=== PATIENT | female | born 1935 | race Caucasian/White ===

== ENCOUNTER 2017-04-12 12:57 | Inpatient (IN) | payer MEDICARE, OTHER ==
[~2017-04-12] VITALS: Ht 157.5 cm; Wt 65.8 kg
[2017-04-12] MEDS ORDERED: ABILIFY10 MG PO (13:24)
[2017-04-12] MEDS ORDERED: NITROFURANTOIN100 MG PO (13:24)
[2017-04-12] MEDS ORDERED: LISINOPRIL-HCT1 EACH PO (13:25)
--- NOTE | 2017-04-12 19:25 | NUR ---
PATIENT ADMIT FROM ED. PATIENT TO FLOOR VIA STRETCHER. TRANSFER SELF TO HOSPITAL BED WITH NO DIFFICULTY. HEAD TO TOE ASSESSMENT COMPLETED. SKIN INTACT EXCEPT RASH AND REDNESS NOTED ON THE UPPER AND LOWER EXTREMITIES AND BUTTOCK. PATIENT IS INCONTINENT OF URINE. CAREGIVER REPORTED THAT PATIENT HAD 2 BMs DIARRHEA THIS AM. LUNGS COARSE, AND CRAKLES THROUGHOUT. POSITIVE BOWEL TONES. PATIENT ORIENTED TO ROOM, EDUCATION ABOUT HOW TO USE CALL LIGHT. CLEAR LIQ TRAY ORDERED AND PATIENT ATE 100%. DENIED PAIN, REPORTED SOB WITH MOVEMENT. IV SITE PATENT AND FLUID INFUSING. PULSE OX ON. PATIENT ON 3L OF 02 AND SAT BETWEEN 92-94%. NO APPARENT DISTRESS NOTED. REPORT GIVEN TO CARLOTA.
--- NOTE | 2017-04-12 19:30 | NUR ---
RECEIVED REPORT FROM DAY SHIFT RN. PATIENT IS SITTING AT THE BEDSIDE EATING HER DINNER. PATIENT IS ON 3L VIA NC AND DENIES ANY SOB. PATIENT DENIES ANY REQUESTS AT THIS TIME. CALL LIGHT IS WITHIN REACH.
--- NOTE | 2017-04-12 21:40 | NUR ---
PATIENT ASSESMENT COMPLETE. PATIENT TUCKED INTO BED WITH A WARM BLANKET. PATIENT IS ON 3L VIA NC. PATIENT IS ON A CLEAR LIQUID DIET AND ATE 100% OF HER DINNER AND TOLERATED IT WELL. PATIENT DENIES ANY PAIN OR NAUSEA. PATIENT IS INCONTINENT AT TIMES. PATIENTS ATTEND IS DRY. PATIENT IS ON A PULSE OX AND READINGS ARE WNL. PATIENTS BED ALARM HAS BEEN PLACED ON FOR SAFETY. CALL LIGHT IS WITHIN REACH.
--- NOTE | 2017-04-12 23:19 | NUR ---
PATIENTS PULSE OX WAS ALERTING STAFF. PATIENT HAD REMOVED OXYGEN. PATIENT ASSISTED TO SIT IN CHAIR NEXT TO BED. PATIENT AMBULATED A SBA. PATIENT TOLERATED ACTIVITY WELL. PATIENTS BEDDING AND ATTEND WAS CHANGED. JIE CARE PERFORMED. PATIENT ASSISTED BACK INTO BED. PATIENT IS BACK ON 3L VIA MI. PATIENT IS REQUESTING A CUP OF COFFEE. PATIENTS REQUESTS MET. PATIENTS BED ALARM PLACED ON FOR SAFETY. PATIENT DENIES ANY FURTHER NEEDS AT THIS TIME. CALL LIGHT IS WITHIN REACH.
--- NOTE | 2017-04-13 01:29 | NUR ---
PATIENT HAS INCREASING SOB. RT IN THE ROOM TO EVALUATE PATIENT. SPOKE WITH HOSPITALIST. PATIENT IS TO BE PLACED ON HIGH FLOW, NEM PRN NEB ORDERS PLACED. RT IS IN THE ROOM TO PLACE NEW ORDERS INTO PLACE.
--- NOTE | 2017-04-13 02:33 | NUR ---
PATIENT IS NOW REFUSING TO WEAR THE HIGH FLOW OXYGEN. PATIENT PLACED BACK ON 5L VIA NC. PATIENT IS SITTING UP ON THE EDGE OF THE BED. PATIENTS BED ALARM IS ON FOR SAFETY. CALL LIGHT IS WITHIN REACH.
--- NOTE | 2017-04-13 04:16 | NUR ---
PATIENT REMOVED OXYGEN. PATIENT IS REFUSING TO WEAR OXYGEN. PATIENT EDUCATED ON OXYGEN USE. PATIENT AGREED TO WEAR OXYGEN. PATIENT DENIES ANY SOB. PATIENT DENIES ANY NEEDS AT THIS TIME. CALL LIGHT IS WITHIN REACH.
--- NOTE | 2017-04-13 05:35 | NUR ---
PATIENTS ATTEND CHANGED AND JIE CARE PERFORMED. PATIENT IS NOW IN THE RECLINER WATCHING TV. PATIENT HAS A CHAIR ALARM ON FOR SAFETY. PATIENT IS REQUESTING TO REMOVE OXYGEN STATING "I JUST DONT LIKE IT, AND I FEEL FINE' PATIENT REEDUCATED ON THE IMPORTANCE OF WEAING HER OXYGEN. PATIENT AGREED TO CONTINUE TO WEAR HER OXYGEN.
--- NOTE | 2017-04-13 06:16 | NUR ---
PATIENT RESTED ON AND OFF THROUGHOUT THE SHIFT. PATIENT IS ON A CLEAR LIQUID DIET AND IS TOLERATING IT WELL. PATIENT IS ON 5L VIA NC. PATIENT IS ALSO ON A PULSE OX. PATIENT IS A SBA AND TOELRATES AMBULATION WELL. PATIENT IS NON COMPLIANT AT TIMES AND REQUIRES A BED/CHAIR ALARM FOR SAFETY. PATIENT ALSO REFUSED TO WEAR HIGH FLOW OXYGEN. PATIENT AT TIMES REFUSES TO WEAR OXYGEN, BUT AFTER EDUCATION THE PATIENT WILL AGREE TO WEAR OXYGEN. PATIENT RECEIVED X1 PRN NEB TREATMENT. PATIENT IS AAOX3. PATIENT USES CALL LIGHT MOST OF THE TIME.
--- NOTE | 2017-04-13 06:58 | NUR ---
PATIENT IS NOW BACK IN BED RESTING AND WATCHING TV. PATIENT TOLERATED AMBULATIONAS A SBA AND DENIED ANY SOB. CALL LIGHT IS WITHIN REACH AND BED ALARM IS ON.
--- NOTE | 2017-04-13 08:19 | NUR ---
PT AWAKE AT SHIFT CHANGE DENIES DISCOMFORTS. RESTING IN BED, REFUSES OFFER TO GET UP TO THE CHAIR. PT ASKING IF SHE CAN GO HOME TODAY. AGREES RASH IS MUCH BETTER, LEGS NO LONGER ITCH OR BURN. SATS 98% ON 5 L 02 TURNED DOWN TO [address]
--- NOTE | 2017-04-13 10:29 | NUR ---
PT 02 TITRATED DOWN SATS HAVE REMAINED IN THE 90'S. DC'D AT THIS TIME, PT AGREES TO COUGH AND DEEP BREATH IF PULSE OX ALARMS. SATS REMAIN IN THE 90'S ON ROOM AIR. PT HAS REMAINED UP ON THE SIDE OF THE BED THIS SHIFT, COMPANY PRESENT
[2017-04-13] MEDS ORDERED: FLOVENT HFA12 GM INH (11:28)
[2017-04-13] MEDS ORDERED: VENTOLIN HFA18 GM INH (11:29)
--- NOTE | 2017-04-13 11:42 | NUR ---
MED REC COMPLETE--PATIENT INTERVIEW
--- NOTE | 2017-04-13 11:54 | NUR ---
DR RUIZ IN TO SEE PT ORDERS FOR REGULAR DIET RECEIVED, LUNCH ORDERED. QUESTIONS ASKED AND ANSWERED PT VERBALIZES UNDERSTANDING. PT CONTINUES ON ROOM AIR WITH SATS IN THE MID 90'S DENIES DISCOMFORTS OR NEEDS AT THIS TIME
--- NOTE | 2017-04-13 13:22 | NUR ---
02 REPLACED AT 3 LPM PT DESATS WTIH CONVERSATION AND EATING MEAL. UP IN CHAIR MORNING CARES AND SHOWER COMPLETED, PT APPEARS TO HAVE INCREASED SOB BUT RECOVERS FAIRLY QUICKLY. DENIES DISCOMFORTS OR NEEDS AT THIS TIME
--- NOTE | 2017-04-13 13:28 | NUR ---
PT IS SITTING UP IN CHAIR, HAS JUST FINISHED A BATH WITH TOO BLAND'S HELP. SHE SMILED AND SAID SHE IS FEELING MUCH BETTER. REQUESTED PRAYER. SHE SAID SHE IS PLANNING ON BEING DC'D TOMORROW
--- NOTE | 2017-04-13 14:47 | NUR ---
PT HAS BEEN UP IN THE CHAIR PART OF THIS SHIFT, RETURNS TO BED TO REST FOR A TIME. REMAINS ON 02 AT THIS TIME, TALKING ON THE PHONE
--- NOTE | 2017-04-13 18:12 | NUR ---
PT HAD A "GOOD NAP" BEFORE EVENING MEAL. UP ON SIDE OF BED EATING AT THIS TIME. CONTINUES ON 02 3L AFTER TOLERATING ROOM AIR ALL MORNING. PT APPETITE IS GOOD DENIES PAIN OR DISCOMFORTS.
--- NOTE | 2017-04-13 19:05 | NUR ---
RECEIVED REPORT FROM DAY SHIFT RN. PATIENT IS RESTING IN BED VISITING WITH A FRIEND. PATIENT IS ON 3L VIA NC AND PULSE OX READINGS ARE WNL. PATIENT DENIES ANY NEEDS AT THIS TIME/
--- NOTE | 2017-04-13 21:58 | NUR ---
PATIENT ASSESMENT COMPLETED. RT IN ROOM ADMINISTERING NEB TREATMENT. PATIENT DENIES ANY SOB. PATIENTS ATTEND IS SRY AT THIS TIME. PATIENT DENIES ANY FURTHER NEEDS. PATIENTS BED ALARM IS ON FOR PATIENT SAFETY. PATIENT IS VISTING WITH A FRIEND IN THE ROOM. CALL LIGHT IS WITHIN REACH
--- NOTE | 2017-04-14 00:02 | NUR ---
PATIENTS ATTEND AND BEDDING CHANGED. PATIENT HAD A BOUT OF INCONTINECE. PATIENT HAD BM. PATIENT REMAINS ON 3L VIA NC AND A PULSE OX. PULSE OX READINGS ARE WNL. PATIENT DENIES ANY SOB. PATIENT IS NOW BACK IN BED RESTING. PATIENT DENIES ANY FURTHER NEEDS. CALL LIGHT IS WITHIN REACH. AND BED ALARM IS ON FOR PATIENT SAFETY.
--- NOTE | 2017-04-14 02:42 | NUR ---
PATIENTS IS A SBA AND WAS ABLE TO AMBULATE TO THE RESTROOM. PATIENT TOLERATED AMBULATION WELL. PATIENT DENIED ANY SOB WHILE AMBULATING. PATIENT IS NOW BACK IN BED RESTING AND WATCHING TV. PATIENT GIVEN A WARM BLANKET FOR PAIN IN HER BACK THAT SHE RATES AT A 2/10. PATIENT STATED "THIS BED HURTS MY BACK" PATIENTS BED ALARM IS ON FOR SAFETY AND CALL LIGHT IS WITHIN REACH.
--- NOTE | 2017-04-14 04:54 | NUR ---
PATIENTS OXYGEN PLACED BACK ON. PATIENT DENIES ANY NEEDS AT THIS TIME. BED ALARM ON AN CALL LIGHT IS WITHIN REACH.
--- NOTE | 2017-04-14 05:26 | NUR ---
PATIENT RESTED WELL THROUGHOUT THE SHIFT. PATIENT IS ON A REG DIET AND TOLERATING IT WELL. PATIENTIS ON 3L VIA NC. PATIENT IS ON A CONTINOUS PULSE OX. PATIENT HAD A BM X1. PATIENT RECEIVED A NEW IV. PATIENT IS AAO X3. PATIENT IS IMPULSIVE AT TIMES. PATIENTS BED ALARM IS ON FOR SAFETY.
--- NOTE | 2017-04-14 06:25 | NUR ---
PATIENT ASSISTED TO THE RESTROOM. PATIENTS ATTEND CHANGED AND JIE CARE PERFROMED. PATIENT ALSO HAD A BM X1. PATIENT TOLERATED AMBULATION WELL. PATIENT IS NOW BACK IN BED WATCHING TV. PATIENT REMAINS ON 3L VIA NC. PATIENTS BED ALRM IS ON AND CALL LIGHT IS WITHIN REACH.
--- NOTE | 2017-04-14 07:23 | NUR ---
PT SLEEPING SOUND AT SHIFT CHANGE 02 ON 3L SATS 97%
--- NOTE | 2017-04-14 10:28 | NUR ---
PT UP AT SIDE OF BED FOR MORNING MEAL TOLERATES A HEARTY BREAKFAST. AMBULATES TO TOILET SATS DECREASE WITH ACTIVITY AND PT INCREASED EFFORT OF BREATHING BUT RECOVERS QUICKLY WITH REST. CONTINUES ON 02 AT 3LPM AT THIS TIME SATS LOW 90'S PULSE OX IN PLACE. PT DENIES PAIN OR DISCOMFORTS INQUIRES ABOUT DC TODAY AND IS HOPEFUL SHE CAN GO HOME
[2017-04-14] MEDS ORDERED: NICOTINE PATCH1 EA TD (12:45)
[2017-04-14] MEDS ORDERED: CEFUROXIME500 MG PO (12:45)
--- NOTE | 2017-04-14 13:31 | NUR ---
DR UMANA IN TO SEE PT, QUESTIONS ASKED AND ANSWERED. PT TO REMAIN ADMIT FOR ANOTHER DAY OR 2. PT CONTINUES TO WEAR 02 2LPM NC AT THIS TIME. CALLS APPROPRIATELY FOR ASSIST PRN. AMBULATES WELL IN ROOM USING NO WALKER IS HER NORM. PT DENIES ANY DISCOMFORTS OR INCREASED SOB AT THIS TIME
--- NOTE | 2017-04-14 17:01 | NUR ---
PT USING CALL LIGHT REQUESTED. UP TO THE TOILET STEADY ON HER FEET RETURNS TO RESTING IN BED HAD A NAP EARLIER.
--- NOTE | 2017-04-14 18:36 | NUR ---
PT UP IN CHAIR VISITOR PRESENT
--- NOTE | 2017-04-14 19:00 | NUR ---
RECEIVED REPORT AT 1900. FOUND PT IN BED ALERT AND ORIENTED AND IN NO VISIBLE DISTRESS. PT STATED THAT SHE WAS READY FOR BED.
--- NOTE | 2017-04-14 20:00 | NUR ---
PT IS IN BED, PT HAD ANOTHER INCONNTINENT EPISODE, BRIEF AND PAD WERE CHANGED. ALL LOBES ARE CLEAR BUT LEFT SIDE IS DIMINISHED. RASH IS GONE ON BOTH LEGS. PT DENIES PAIN OR ITCHING AT THIS TIME. NO NEW ISSUES HAVE BEEN NOTED AT THIS TIME.
--- NOTE | 2017-04-14 23:32 | NUR ---
PT IS SLEEPING AT THIS TIME.
--- NOTE | 2017-04-15 02:58 | NUR ---
PT SO FAR HAD INCONNTINENT EPISODES X3. URINE OUTPUT IS MORE THAN ADEQUATE. BED CHANGE WAS DONE WELL. PT IS COUGHING MORE THAN AT START OF SHIFT. COUGH IS NON PRODUCTIVE. ALL LOBES ARE STILL CLEAR.
--- NOTE | 2017-04-15 04:53 | NUR ---
PT OVERALL HAD A UNEVENTFUL NIGHT. PT HAS HAD URINE INCONNTINECE X3 THUS FAR. PT IS SLEEPING AT THIS TIME. LOBES ARE STILL CLEAR.
--- NOTE | 2017-04-15 08:30 | NUR ---
PATIENT SITTING AT BEDSIDE EATING LUNCH.
--- NOTE | 2017-04-15 11:07 | NUR ---
PT AWAKE AT SHIFT CHANGE SITTING ON EDGE OF BED ASKING ABOUT GOING HOME. ABX INFUSED IV SITE WORKING APPROPRIATELY DC'D AGTER THAT SITE UNREMARKABLE. PT EATS 100% OF BREAKFAST. REPORTS BEING ANXIOUS TO GO HOME. DENIES NEEDS OR CONCERNS. AGREES BREATHING IS AT BASE LINE. PT UP INDEPENDANTLY IN ROOM DRESSES SELF IS STEADY ON HER FEET NO USE OF WALKER OR OTHER DEVICE.
--- NOTE | 2017-04-15 11:32 | NUR ---
dr arroyo in to see pt and caregiver present. dc instructions given questions answered
== END 2017-04-15 11:35 | disposition home or self-care (01) | DRG 606 ==
LOC: ED 12:57 → MS 17:00
PROVIDERS: ADMIT Internal Medicine
DX: L27.0 Generalized skin eruption due to drugs and medicaments taken internally (principal); J13 Pneumonia due to Streptococcus pneumoniae; J96.01 Acute respiratory failure with hypoxia; T37.8X5A Adverse effect of other specified systemic anti-infectives and antiparasitics, initial encounter; I10 Essential (primary) hypertension; J44.9 Chronic obstructive pulmonary disease, unspecified; F39 Unspecified mood [affective] disorder; F17.210 Nicotine dependence, cigarettes, uncomplicated
CPT/HCPCS: 36415; 71020; 80048; 80053; 83605; 83880; 84484; 85025; 87040; 94640; 94760; 94761; 94799; 99406; J0456; J0696; J1650; J2930; J7030

== ENCOUNTER 2017-09-25 18:47 | Emergency (ER) | payer MEDICARE, OTHER ==
[~2017-09-25] VITALS: Ht 157.5 cm; Wt 65.8 kg
[~2017-09-25 18:47] MED LIST: ABILIFY10 MG PO; CEFUROXIME500 MG PO; FLOVENT HFA12 GM INH; LISINOPRIL-HCT1 EACH PO; NICOTINE PATCH1 EA TD; NITROFURANTOIN100 MG PO; VENTOLIN HFA18 GM INH
== END 2017-09-25 19:53 | disposition home or self-care (01) ==
LOC: ED 18:47
DX: I83.891 Varicose veins of right lower extremity with other complications (principal); I10 Essential (primary) hypertension; J44.9 Chronic obstructive pulmonary disease, unspecified; F17.200 Nicotine dependence, unspecified, uncomplicated; Z87.440 Personal history of urinary (tract) infections; Z90.710 Acquired absence of both cervix and uterus; Z98.890 Other specified postprocedural states; Z88.1 Allergy status to other antibiotic agents
CPT/HCPCS: 99283

== ENCOUNTER 2023-02-17 12:41 | Inpatient (IN) | payer MEDICARE, OTHER ==
[~2023-02-17] VITALS: Ht 157.5 cm; Wt 64.3 kg
[2023-02-17] VITALS (15 sets, daily range): BP systolic 96–140; BP diastolic 40–71
[~2023-02-17 12:41] MED LIST changes: +ACETAMINOPHEN500 MG PO; +ARIPIPRAZOLE5 MG PO; +DIFLUCAN150 MG PO; +EPIPEN 2-P0.3 MG/0.3 IM; +HYDROCODON-ACE1 EA10 PO; +IBUPROFEN600 MG PO; +MORGIDOX100 MG PO; +NICODERM CQ1 EAC2 TD; +PREDNISONE20 MG PO
[2023-02-17] MEDS ORDERED: ARIPIPRAZOLE10 MG PO (16:28)
[2023-02-17] MEDS ORDERED: ANASTROZOLE1 MG PO (16:29)
[2023-02-17] MEDS ORDERED: BREO ELLIPTA I1 EACH INH (16:29)
--- NOTE | 2023-02-17 17:25 | EKG ---
[facility] [address] [place] [address] Signed Sinus tachycardia Rightward axis Possible Anterior infarct , age undetermined Abnormal ECG When compared with ECG of 19-JAN-2022 13:38, Vent. rate has increased Confirmed by Amador Toro MD () on 02/17/2023 5:25:02 PM Electronically Signed By: AMADOR TORO MD 02/17/23 1725 PATIENT NAME: ERICA HAMMER Electrocardiogram DATE OF : 39 PHYSICIAN: AMADOR TORO MD REPORT #: [id number] REPORT IS CONFIDENTIAL AND NOT TO BE RELEASED WITHOUT AUTHORIZATION
--- NOTE | 2023-02-17 18:15 | NUR ---
PT RECEIVED FROM ED, ADMISSION INTAKE COMPLETED. PT TRANSPORTED TO CT SCAN FOR R/O PE CT, PLACED ON 10L DURING TEST, O2 SATS REMIANED >90%. PT NOW ON BIPAP, FIO2 40%, IPAP 15 EPAP 7.
--- NOTE | 2023-02-17 19:17 | NUR ---
DR. TORO AT BEDSIDE TO DISCUSS CT SCAN RESULTS WITH FAMILY.
--- NOTE | 2023-02-17 19:30 | NUR ---
PT ASSESSED AND FOUND LAYING IN HOSPITAL BED. PT IS DIFFICULT TO ARROUSE, DOES NOT FOLLOW COMMANDS AND IS NON-VERBAL AT THIS TIME. PT IS RECEIVING O2 VIA OXYMASK AT 10 LPM. RESPIRATINS ARE LABORED, COARSE TO DIMINSHED THROUGHOUT WITH BILATERAL EXPIRATORY WHEEZES NOTED. RT CALLED FOR PRN DUE NEB AND RE-ASSESSMENT. BASELINE VITALS SIGNS OBAINED. ALARM LIMITS SET ON SUPERVISOR CAPACITOR PROCESSING. PAULINO CATH CARE PERFORMED WITH SECOND RN PRESENT. PT TURNED TO R. SIDE. MEPILEX PLACED ON COCCYX. SKIN ASSESSED. BED ALARM SET. FAMILY IN ROOM WITH PT.. EDUCATION PROVIDED, FAMILY SEEMS RECEPTIVE. MD AT BEDSIDE. PLAN: MAINTAIN COMPLAINCE WITH BIPAP THROUGHOUT THE NIGHT, RE-DRAW LACTATE NOW AND EVALUATE LABS IN AM.
--- NOTE | 2023-02-17 20:03 | NUR ---
ASSISTED FAMILY LAW SPECIALIST TO GET BLOOD. PT SAID "YES" WHEN TECH SAID HE WAS HERE TO DRAW BLOOD, THIS RN ASKED HER WHERE SHE IS SHE SAID "YES". DID ASK PT TO OPEN HER EYES, SHE DID. ASKED HER NAME OF HER SON WHO IS PRESENT IN THE ROOM, SHE SAID ROMANA. THIS RN PRESENT IN ROOM TO ENSURE O2 STAYS IN PLACE.
--- NOTE | 2023-02-17 20:21 | EKG ---
[facility] [address] [facility] [place] [address] Signed Atrial flutter with 2:1 AV conduction Rightward axis Possible Anterior infarct , age undetermined Abnormal ECG When compared with ECG of 19-JAN-2022 13:38, Significant changes have occurred Confirmed by Amador Toro MD () on 02/17/2023 8:21:09 PM Electronically Signed By: AMADOR TORO MD 02/17/232020 PATIENT NAME: ERICA HAMMER Electrocardiogram DATE OF : 39 PHYSICIAN: AMADOR TORO MD REPORT #: [id number] REPORT IS CONFIDENTIAL AND NOT TO BE RELEASED WITHOUT AUTHORIZATION
--- NOTE | 2023-02-17 20:31 | NUR ---
PAULINO EMPTIED, THIS RN AND PT PRIMARY RN TURNED PT AFTER PAULINO CARE. ALLEYVN PLACED ON INTACT SKIN ON BACK SIDE PREVENTIVE. REDNESS IN GROIN, JIE AREA, BARRIER CREAM APPLIED. PT HAS HISTORY OF DRINKING, NOT DAILY PER FAMILY. INCONT AT BASELINE, LACKS SHOWERING BY CHOICE. DOESN'T TAKE MEDICATIONS REGULARLY. DRINKS COFFEE AND SMOKING.
--- NOTE | 2023-02-17 21:40 | NUR ---
PT WITH NOTED IMPROVMENT IN ALERTNESS. PT ABLE TO OPEN HER EYES SPONT. AND RESPOND YES OR NO TO SIMPLE QUESTIONS. RT AT BEDSIDE, PT PLACED BACK ON BIPAP. SECOND RN TO REMAIN ONE TO ONE D/T PT'S REDUCED LEVEL OR ALERTNESS/ RESPONSIVENESS. BREATHING TX ADMINISTERED. LACTATE NORMALIZED. CONSULTED REGARDING MAINT. FLUIDS AND REQUEST FOR VBG IN AM. NEW ORDERS OBTAINED.
[2023-02-18] VITALS (27 sets, daily range): BP systolic 96–146; BP diastolic 46–98
--- NOTE | 2023-02-18 01:21 | NUR ---
PT WITH INCREASED RESTLESSNESS AND AGITATION. PT MAKING MULTIPLE ATTEMPTS TO REMOVE BIPAP. PRN LORAZEPAM ADMINISTERED AND PT REPOSITION OF COMFORT. MASK REMOVED AND FACE WIPED WITH CLOTH.
--- NOTE | 2023-02-18 06:27 | NUR ---
PT REMAINS DIFFICULT TO ARROUSE, ON BIPAP WITH SETTINGS OF 14/6 AND 50% FIO2. PT AWAKENS TO PAINFUL STIMULI, HAS PURPOSEFUL MOVEMENTS BUT IS NOT FOLLOWING COMMANDS. PT OCCASIONALLY RESPONDS TO SIMPLE QUESTIONS WITH YES OR NO ANSWERS. PT HAS BEEN IN A NSR, HYPOTENSIVE AND A-FEBRILE. PT REQUIRED A SHORT, MINIMAL DOSE OF NOREPI GTT FOR HYPOTENSION. NOREPI GTT OFF AT THIS TIME. RESPIRATIONS ARE LABORED AT TIMES. PT RECEIVING MULTIPLE PRN DUE NEBS. LS COARS/ DIMINISHED THROUGHOUT WITH EXPIRATORY WHEEZES NOTED BILATERALLY. PT WITH INCREASED O2 REQUIREMENTS FROM 40% FIO2 TO 50%. PT WITH MARGINAL U/O, MD AWARE. LAST BM UNKNOWN. LABS: RESOLVED LEUKOCYTOSIS, H/H STABLE, NA 136, K 4.8, MAG 2, PHOS 2.8. VBG IMPROVED: PH 7.35, CO2 59 AND HCO3 33. LACTATE 0.8. UC REMAINS PENDING.
--- NOTE | 2023-02-18 07:44 | NUR ---
Report received from night RN - Pt on Bipap currently, some purposeful movement attempting to take mask off. RT in room to assess.
--- NOTE | 2023-02-18 08:00 | NUR ---
PT ON 7L VIA OXY MASK, MAINTAINING SPO2 >92%, RR 20'S. ALERT AND SPEAKING IN FULL SENTENCES, STATES SHE "FEEL GREAT", INTERMITANT DROWSYNESS BUT WAKES EASILY. IV ACCESS REESTABLISHED, PT TOLERATED WELL. PT REPOSISTIONED UP IN BED. SINUS RYTHEM ON MONITOR - RATES 80'S.
--- NOTE | 2023-02-18 09:00 | NUR ---
RN IN ROOM ROUNDING WITH MD - PT REAMINS ON OXYMASK AT 7l. UPDATED POC DISCUSSED WITH MD AND RT, CPT TRIAL AND BACK ON BIPAP. PT FOLLOWING DIRECTIONS WITH PROMPTING, MINIMAL EYE OPENING. PT ABLE TO TURN SELF IN BED, REQUESTS TO BE SITTING STRAIGHT UP. FACE WASHED.
--- NOTE | 2023-02-18 10:27 | NUR ---
PT RESTING IN BED WITH HOB ELEVATED ON BIPAP AT SETTINGS 14/7 AT 50% FIO2. PT TOLERATING MASK WITHOUT DIFFICULTY, REMAINS IN DIRECT VIEW OF RN. FAMILY AT BEDSIDE, UPDATED ON STATUS.
--- NOTE | 2023-02-18 11:14 | NUR ---
NICOTINE PATCH PLACED. PT RESING IN BED ON LEFT SIDE ON BIPAP, TOLERATING MASK WITHOUT DIFFICULTY. HOB ELEVATED. HR REMAINS IN NSR, BP STABLE. REAMINS IN DIRECET VIEW OF RN AT STATION.
--- NOTE | 2023-02-18 12:10 | NUR ---
PT REPOSISTIONED TO RIGHT SIDE - RT IN ROOM TO PROVIDE CPT AND NEB TX. PT TOLERATING WITH ENCOURAGMENT. ALLYVN PLACED ON LEFT GLUT FOLD DECUB, PICS TAKEN IN CHART.
--- NOTE | 2023-02-18 12:34 | NUR ---
PT ALERT AND ON OXYMASK TALKING WITH FAMILY AT BEDSIDE, ORAL PRN MUSINEX ADMINISTERED WITH SIP OF WATER.
--- NOTE | 2023-02-18 12:40 | NUR ---
MED REC COMPLETE
--- NOTE | 2023-02-18 13:04 | NUR ---
PT PLACED BACK ON BIPAP WITH DESATURATION WITH OXYMASK. TOLERATING WITH MINIMAL AGGITATION.
--- NOTE | 2023-02-18 13:43 | NUR ---
TOOK CALL FROM PT'S POA WHO STATES SHE WANTS TO MAKE PT A "DNR" AND "NOT CPR" TOOK HER INFORMATION AND FORWARDED IT TO DR TORO TO SPEAK WITH POA
--- NOTE | 2023-02-18 14:20 | NUR ---
PT BECOMING ANXIOUS IN BED - ASSISTED TO SIDE OF BED TO SIT AND LOOK OUT WINDOW. PT FATIGUED AFTER APPROX 3 MINUTES, BACK TO LEFT SIDE LAYING POSISTION PROPTED WITH PILLOWS. REMAINS ON BIPAP WITH ENCOURAGMENT.
--- NOTE | 2023-02-18 15:38 | NUR ---
ORAL CARE AND SHAMPOO COMPLETE. PT PLACED ON OXYMASK TO BREAK FROM BIPAP, 7l O2. PT SPEAKING IN FULL SENTENCES, ASKING TO GO HOME TO SMOKE.
--- NOTE | 2023-02-18 17:12 | NUR ---
PT ASSISTED TO SIDE OF BED TO DANGLE FEET PER PT REQUEST. SMALL SIPS OF BLACK COFFEE PROVIDED IN ATTEMPT TO SATISFY PTS AGGITATION WITH LINES/LEADS/MASK. SP02 STABLE ON 7L OXYMASK.
--- NOTE | 2023-02-18 18:30 | NUR ---
PT ASSISTED BACK TO BED AND REPOSISTIONED ON RIGHT SIDE.
--- NOTE | 2023-02-18 19:30 | NUR ---
PT ASSESSED AND FOUND TO BE LAYING IN HOSPITAL BED, ALERT TO PERSON, PLACE AND EVENT. PT IS CONFUSED TO TIME BUT RE-ORIENTS APPROPRIATELY. PT FOLLOWS SIMPLE COMMANDS, HAS EQUAL DYER AND WASHER AND STRONG PUSH/ PULL WITH BILAT LOWER EXTREMITIES. PTS SMILE IS EQUAL. ALARM PERAMETERS SET, BED ALARM TURNED ON AND NURSE CALL LIGHT PLACED AT PTS SIDE. PT INSTRUCTED ON USE OF CALL LIGHT. EDUCATION PROVIDED REGARDING DEEP BREATHING EXERCISES, ISP AND FLUTTER VALVE. PT WILL NEED CONTINUED EDUCATIONAL REINFORCEMENT. FAMILY CONCERNED REGARDING HOSPITAL DISCHARGE AND USE OF OXYGEN WITH PT'S CURRENT SMOKING HABBIT. FAMILY INSTRUCTED TO ADDRESS CONCERNS WITH CASE MANAGEMENT PRIOR TO HOSPITAL DISCHARGE. THIS RN WILL RELAY CONCERNS TO DAYSHIFT RN DURING REPORT. RESPIRATIONS ARE NON-LABORED, PT IS ON AN OXY MASK AT 7 LPM. LS ARE COARSE AND DIMINISHED WITH BILAT. EXPIRATORY WHEEZES. PLAN: INTERMITTENT BIPAP USE THROUGHOUT THE NIGHT.
--- NOTE | 2023-02-18 21:07 | NUR ---
ISP AND FLUTTER VALVE PERFORMED, PT WITH NOTED 500. PT PLACED ON BIPAP.
[2023-02-19] VITALS (18 sets, daily range): BP systolic 85–135; BP diastolic 43–107
--- NOTE | 2023-02-19 01:00 | NUR ---
PT NOTED TO BE RESTLESS WITH INCREASING AGITATION AND AXIETY. PT IS PULLING OFF O2 AND TRYING TO GET OUT OF BED. PRN LORAZEPAM ADMINISTERED AND PT PLACED ON BIPAP. PT APPEARS MORE RELAXED AND IS TOLERATING BIPAP.
--- NOTE | 2023-02-19 06:18 | NUR ---
PT REMAINS ALERT AND ORIENTED TO PERSON, PLACE, AND EVENT. PT FOLLOWS SIMPLE COMMANDS BUT CONTINUES TO BE ANXIOUS AND RESTLESS REQUIRING CONSTANT RE-DIRECTION THROUGHOUT THE NIGHT. PT HAS BEEN IN A NSR, NORMOTENSIVE AND A-FEBRILE. L/S UNCHANGED. BREATHING EXERCISES PERFORMED. PT TURNED FROM SIDE TO SIDE TO PROMOTE PULMONARY TOILETING. WITHOUT SUPPLEMENTAL O2, PT EXPERIENCES A REDUCTION IN O2 SATURATIONS FROM MID 90S TO LOW 80S. PT TAKES A FEW MINUTES TO RECOVER WITH IMPROVED SATURATIONS. PT TOLERATED BIPAP X 4 HRS. PT WITH MARGINAL U/O, BUT SEEMS TO BE PICKING UP IN LAST TWO HRS. LAST BM NOTED YESTERDAY. LABS: RESOLVED LEUKOCYTOSIS, ELECTROLYTES WNL, BUN/CREAT 11/.51 AND CO2 NOTED TO BE MORE ELEVATED FROM 32 TO 36.
--- NOTE | 2023-02-19 07:20 | NUR ---
report from xi galvez, pt with bipap 27/04 50% fio2, npo, dorsey draining, call light in reach.
--- NOTE | 2023-02-19 07:55 | NUR ---
notified saran from dc plan that pt friend Marisela is in room, pt on bipap with eyes closed, resp even hr 71.
--- NOTE | 2023-02-19 08:10 | NUR ---
Spoke with pts friend, Eileen. Pt is sleeping soundly with Bipap in place. Eileen states she is Keisha's friend and has helped her for a long time. Keisha's daughter in [place] is the POA. Marisela assists pt with meds, transport, and generally looking after her. Pt lives at [facility]. Her son and DIL are homeless and have been staying there frequently. Per Marisela, Pt has been notified several times, she will be evicted if son and cont. to stay. Son, Richardson and arrive. Son is rude to Eileen and asks why Keisha is sleeping. He then states, "they have over medicated her again, they just want her to sleep". Marisela attempts to tell son, she was given a small dose of meds to allow her to rest. Son leaves. Marisela states they are homeless and living in their car in the parking lot at the hospital. They cannot stay in pts room while she is in the hospital. I discussed with Marisela, what she feels is the best plan. She and the POA would like pt placed into a SNF for a short while. Pt does not take her meds correctly and only takes a few per month. She does not want Marisela to set up a med box, but Marisela counts her pills as she get them filled and picks them up. She also states pt has difficulty getting around with her walker. I updated her on [employer] and let her know she or POA can start the for halfway medicaid which will assist this pt with either a cg or possible placement to placement. Pt would need to qualify financially and physically. I also let Marisela know, if the pt is not in agreement, I cannot make her do anything she does not want. Marisela states pts goal is to be able to leave and smoke. I let her know, [place] allows pts to smoke. I will call her POA, Son and update her. I will ask her to call Maria A Michelle at [facility] to start the eval for moth exterminator care.
--- NOTE | 2023-02-19 08:44 | NUR ---
in room to round with dr hilton, pt friend vianca - pt son just left, pt on bipap - removed bipap pt somulent -cough very course, unable to expectorate anything out. replaced bipap - pt sleepy. o2 sats 93%.
--- NOTE | 2023-02-19 09:46 | NUR ---
pt 2o 6 l nc for speech swallow eval - assisted therapist to move pt up hob for safe swallowing, pt not contributory - great encouragement to hold cup and move it to mouth to swallow. pt encouraged to open eyes. po mucinex given with eval - very congested lung sounds. kpt not spitting out phlem.
--- NOTE | 2023-02-19 10:07 | NUR ---
hair wash cap done with pt - then 9:45 placed bipap to pt - 99% on bipap. lungs course - pt repositioned arms elevated - r thumb iv infilterated and removed -
--- NOTE | 2023-02-19 12:05 | NUR ---
pt npo resting on left side with bipap on, eyes closed resp rate 22, hr 75, 98% sats.
--- NOTE | 2023-02-19 12:37 | NUR ---
Called and spoke with daughter, Son. She is the POA. UPdated to my conversation with Marisela and I have also called Aging and Disability. Gave her Maria A Michelle's name and phone number and asked if she can call and requested an evaluation. She agrees, she is also stating concern as she feels her brother and his have essentially moved into [employer] low income housing. She is very concerned this pt will lose her housing. She is unsure if the pt will go to a SNF or [facility], as she is a Senior Applications Programmer and makes a small amount of money as her DIL's Senior Applications Programmer. I also let her know, I can try and assist them, but I cannot make her mother go into an assisted living facility or a SNF if she is not in agreement. I understand, they feel the son and DIL are taking advantage of [facility], but she is in agreement or they wouldn't be able to sneak in and stay. I will fax the chart to [facility] to check for a rm. I spoke with Dr. Cueva and he feels pt would benefit from a SNF, but agrees it will be up to the pt.
--- NOTE | 2023-02-19 12:45 | NUR ---
PATIENT SITTINGUP IN RECLINER AT THIS TIME, 6L NC IN PLACE. RN NUNO AT BEDSIDE. LINEN CHANGED. CALL LIGHT IN EASY REACH
--- NOTE | 2023-02-19 14:59 | NUR ---
FRIEND OF PT SKYE REQUESTED I VISIT WITH PT. SHE HAS LONG HISTORY, CONCERNED ABOUT PT. SKYE PUT O2 NC BACK ON PTS' NOSE. RESPIRATION ALARM WENT OFF, JUAN M REINA IN RM. REQUSTED I GET PT A WARM BLANKET. PT NOT REALLY RESPONSIVE. VISITED WITH PT, HAD PRAYER AND WILL FOLLOW
--- NOTE | 2023-02-19 15:00 | NUR ---
no iv noted in r ankle - unable to correct in [facility] charting emr.
--- NOTE | 2023-02-19 15:06 | NUR ---
pt trsf from to the bed, 2 person assist with max encouragement and coaching, pt reminded to open eyes, right eye appears swollen, friend states that it looks like from the mask bipap. pt talks with encouragement, and answers questions about her kids when asked, she needs great stimuli to engage in participation. friends say this in not her normal - she is usually more active and engaged. she is tired and wants to go to bed, call light in reach.
--- NOTE | 2023-02-19 18:57 | NUR ---
THIS COBOL APPLICATION DEVELOPER ENTERED VITALS FROM THROUGHOUT THE DAY, OFF OF MONITOR, UPON RN REQUEST. RN AWARE OF VITALS.
--- NOTE | 2023-02-19 19:30 | NUR ---
PT ASSESSED AND FOUND TO BE ALERT AND ORIENTED TO PERSON AND PLACE ONLY. PT FOLLOWS SIMPLE COMMANDS. PT WITH TACHYPNEA, LS COARSE AND DIMINISHED THROUGHOUT. PT DENIES WORSENING SOB. V/S ASSESSED. PT PLACED IN POSITION OF COMFORT. PT ABLE TO TURN SELF FROM SIDE TO SIDE. ALARM PERAMETERS CHECKED. BED ALARM SET. EDUCATION PROVIDED REGARDING BREATHING EXERCISES. PT INSTRUCTED ON HOW TO USE THE CALL LIGHT.
--- NOTE | 2023-02-19 23:04 | NUR ---
PT WITH INCREASED AGITATION, PULLING AT LINES AND TRYING TO GET OUT OF BED. PT RE-ORIENTED AND RE-POSITIONED. PRN LORAZEPAM ADMINISTERED.
[2023-02-20] VITALS (20 sets, daily range): BP systolic 116–189; BP diastolic 46–98
--- NOTE | 2023-02-20 01:45 | NUR ---
pt PULLING OFF BIPAP MASK, REPLACED MASK AND SPO2 SENSOR. pt RESTING IN BED ON BACK WITH EYES CLOSED, RR 20. SPO2 93% WITH BIPAP IN PLACE.
--- NOTE | 2023-02-20 06:23 | NUR ---
PT REMAINS ALERT TO PERSON AND PLACE BUT CONFUSED ABOUT TIME AND EVENT. PT FOLLOWS SIMPLE COMMANDS. PT WITH INCREASED ANXIOUSNESS AND AGITATION THROUGHOUT THE NIGHT. PT RE-ORIENTED MULTIPLE TIMES. PT ABLE TO TURN FROM SIDE TO SIDE ON HER OWN. PT IS NON-COMPLIANT WITH O2 AND CONTINUES MAKING MULTIPLE ATTEMPTS TO GET OUT OF BED. PT CONTINUES TO EXPERIENCE TACHYPNEA WITH COARSE TO DIMINISHED LS THROUGHOUT. PT COMPLIANT WITH BIPAP ONLY TWO TO THREE HRS THROUGHOUT THE NIGHT. PT HAS BEEN IN A NSR, NORMOTENSIVE AND A-FEBRILE. PAULINO CATH CARE PERFORMED. PT WITH ADEQUATE U/O. LAST BM NOTED ON 02/19. LABS: CO2 CONTINUES TO RISE FROM 63 TO 40. H&H STABLE, PT WITHOUT LEUKOCYTOSIS.
--- NOTE | 2023-02-20 07:20 | NUR ---
report from Carlos rn, pt in bed with oxy mask on 4l - restless, son is in room - he is attempting to get mom out of bed on own and requesting breakfast - rn educated him on pt status and npo - this rn helps pt in bed and then situates room and chair for trsf to chair. 1 person max assist pivot trsf to chair for pt., odrsey care, bed bath and linen change done. pt oral care and hair wash complete - bipap placed on - pt lungs wheeze/course, call light in reach. RT marielena in room.
--- NOTE | 2023-02-20 09:05 | NUR ---
IN ROOM TO ROUND WITH DR RUIZ - PT UP IN AND FRIEND Lulu AT SIDE. PT ASKING FOR A CIGARETTE, ON 6L NC AT THIS TIME SATS 90%. PT MOSTLY QUIET WITH EYES CLOSED, RESP 21. CALL LIGHT IN REACH, PAULINO TO GRAVITY.
--- NOTE | 2023-02-20 10:00 | NUR ---
Spoke with pt and asked if she is interested in going to [employer]. We discussed her granddaught Emelyn works there and I have also spoken with her daughter Son. Pt states she will go. She wants to know if she can smoke and I let her know only outside. I spoke with her friend, Marisela. Per Marisela, pt smokes 1/2 to 1 pk per day.
--- NOTE | 2023-02-20 10:08 | NUR ---
PT ATTEMPTED TO SWAALLOW MUCINEX WITH RN, UNABLE TO SWALLOW OR DRINK WITH RN, SPIT PILL OUT. PT CONTINUES UP IN CH, NC 98% 4L. FRIEND VISITING PT.
--- NOTE | 2023-02-20 11:00 | NUR ---
in room with marielena RT, pt placed on bipap while up in chair - short break for pt to be able to talk to Kecia from dc/planning. pt agreeable to long-term during her conversation.
--- NOTE | 2023-02-20 11:00 | NUR ---
Notified by staff, pt, daughter, and granddaughter have requested this pt to be a DNR. Called and spoke with TOM Cline. She is in agreement. Emailed signed POLST Form to Son and she will sign and email back to me.
--- NOTE | 2023-02-20 12:15 | NUR ---
pt in bed, position of comfort to left side, moves on own in bed, bipap on.
--- NOTE | 2023-02-20 13:57 | NUR ---
PT UNRESPONSIVE, ON C-PAP. FRIEND SKYE IN WITH PT. PRAYED WITH PT, ENCOURAGEED SKYE. WILL FOLLOW
--- NOTE | 2023-02-20 14:18 | NUR ---
pt repositioned in bed with nc 4l on for echo study. hr 74, rr 17. dorsey draining yellow urine. npo.
--- NOTE | 2023-02-20 15:30 | NUR ---
CONSULT TO ASSESS FOR MALNUTRITION. PATIENT IS TALKING TO NURSING STAFF TODAY BUT STILL NEEDS THE BIPAP. SHE REMAINS NPO DUE TO NOT SWALLOWING LIQUIDS ON HER OWN. WILL DEFER FULL NUTRITION ASSESSMENT UNTIL PATIENT MORE ALERT AND NOT IN THE ICU. HER BMI IS 25.8 WHICH IS OVERWEIGHT. HER NUTRITION INTAKE AT OR TRAIL [facility] IS UNKNOWN AT THIS TIME. SHE IS A HEAVY SMOKER AND HAS BEEN FOR A LONG TIME. SPEECH THERAPY ASSESSED YESTERDAY AND RECOMMENDED PUREE FOOD WITH MILDLY THICK LIQUIDS. WILL CONTINUE TO MONITOR.
--- NOTE | 2023-02-20 15:45 | NUR ---
call to dr riley to update on pt status, able to wear bipap, echo complete, pt continues to be non participatory in cares and rests in bed, talks about wanting to go outside, to smoke, re directed, asked about npo status and being unsafe to swallow and advised C.G. dietary as she was asking about status. pt continues to be unable to swallow safely. updated torrey. pt continues to rest in bed, RT in room for cpt - denies needs, call light in reach.
--- NOTE | 2023-02-20 16:29 | NUR ---
pt dtg arrives and wakes pt up, pt wants to sit up, this rn 1 person assist pivot trsf pt from bed to chair, dorsey to gravity - clear yellow, pt on 4l nc 86% increased oxygen to 6l nc results 89%, pt attempting to talk with a dtg and friend in room at this time, sitting up in ch. reminded to open eyes, oral care done and swab with lemon sticks. call light in reach and visible to rn station.
--- NOTE | 2023-02-20 17:00 | NUR ---
pt and family requesting juice or apple sauce for pt, this rn called to dr Maximo richmond for rn to try ice chips, with close eval. rn gave 3 small ice chips - pt did well, 2 bites of apple sauce given and pt tollerated well - then pt sat in chair for a few min talking to family - pt then trsf after 20 min back to bed - she was able to stand on her own but lost balance and rn assisted to sit then trsf back to bed - low o2 79 with exertion - oxy mask placed for talking and increased to 95% 10 L.
--- NOTE | 2023-02-20 20:30 | NUR ---
PT ASSESSED, FOUND SLEEPING IN HOSPITAL BED. RESPIRATIONS ARE NON-LABORED. V/S WNL. PT IS RECEIVING O2 VIA OXYMASK AT 5 LPM. THIS RN TO ALLOW PT TO REST IN LIEU OF BUSY DAY AND RESTLESS NIGHT PRIOR. ALARM PERAMETERS CHECK, AND BED ALARM TURNED ON. PTS FAMILY WITH NO QUESTIONS OR CONCERNS. EDUCATION REGARDING ICU DELIRUIMS AND NEED FOR REST PROVIDED TO FAMILY.
[2023-02-21] VITALS (16 sets, daily range): BP systolic 115–180; BP diastolic 31–91
--- NOTE | 2023-02-21 04:21 | NUR ---
PT PULLING AT LINES, REMOVING O2 AND TRYING TO GET OUT OF BED. PT PLACED IN POSITION OF COMFORT, AND RE-ORIENTED MULTIPLE TIMES WITHOUT SUCCESS. THIS RN REMAINED AT BEDSIDE FOR AN EXTENDED PERIOD OF TIME TO ASSIST PATIENT WITH O2 COMPLIANCY. PRN LORAZEPAM ADMINISTERED.
--- NOTE | 2023-02-21 06:53 | NUR ---
PT NEURO STATUS REMAINS UNCHANGED THROUGHOUT THE NIGHT. PT FOLLOWS SIMPLE COMMANDS BUT CONTINUES TO PULL AT LINES AND NEEDS CONSTANT RE-DIRECTION. PT HAS BEEN IN A NSR, NORMOTENSIVE AND A-FEBRILE THROUGHOUT THE NIGHT. PT WITH ADEQUATE U/O. LAST BM NOTED ON 02/19. NO NEW LABS TO REPORT FOR AM.
--- NOTE | 2023-02-21 07:20 | NUR ---
DR RUIZ IN TO SEE PT AND REPORT FROM PREETHI RN, PT RESTING IN BED WITH CALL LIGHT AND ALARM, OXY MASK AT 8L NC SATS 95%, PT ORIENTED TO SELF, CONFUSED AND RESTLESS - PULLING AT LINES - STATES SHE IS TRYING TO GO OUTSIDE. TEMP 97.6, PAULINO DRAINING CLEAR URINE AND PT NPO.
--- NOTE | 2023-02-21 07:49 | NUR ---
IN ROOM WITH PT AND RT - CPT VEST IN PLACE - PT TOLLERATEDS WELL, JAIRO TX CURRENTLY, DISCUSSED PLAN OF CARE FOR DAY WITH PT -
--- NOTE | 2023-02-21 09:00 | NUR ---
Received signed POLST from daughter Son yesterday. Copied and sent to Medical records and to the [place] registry. OT is working with pt when I visited and I spoke with Marisela. Pt is waffeling about a SNF now, but is still in agreement to be placed.
--- NOTE | 2023-02-21 09:44 | NUR ---
PT RESTLESS, WANTS TO GO HOME, DOESN'T WANT TO STAY OR HAVE OXYGEN WHEN FRIEND SKYE EXPLAINS HER CARES TO HER - RE ORIENTED TO PLAN OF CARE, IV ABX, AND PT CLOSES EYES AND FALLS ASLEEP - BIPAP PLACED WITH NO PROBLEM AND PT RESTING WITH 95% SATS RR 22 IN BED.
--- NOTE | 2023-02-21 09:55 | NUR ---
TO ROOM WITH PT TO ASSIST OT TO TREAT, PT ASSISTED TO SIT AT BEDSIDE TO PIVOT TRSF TO , MAX ASSIST OF 2 PEOPLE, WHILE UP IN PT WAS OFFERED ENSURE WITH STRAW BY OT AND WAS UNABLE TO HOLD CUP OR USE STRAW, BITE OF APPLE SAUCE WAS GIVEN AND PT HAD TO BE ENCOURAGED TO SWALLOW WITH CUES. ICE CHIPS WERE GIVEN AND PT WAS ABLE TO SWALLOW WITH CUE. ONLY SMALL FEW BITES HERE INTAKE - WITH STAFF FEED. PT THEN SETTLED TO WITH 3L NC 91% RESP 23, CALL LIGHT IN REACH, FRIEND SKYE AT SIDE AND PT FALLS ASLEEP EASILY WHILE RN IS TALKING TO HER.
--- NOTE | 2023-02-21 11:30 | NUR ---
Spoke with EVITA from [facility]. UPdated there is not a dc date at this time. Per 9:30 meeting would like to dc pt on Sunday if she meets criteria. If she does, not I asked if pt could admit on the weekend and per EVITA this is a possibility if they accept this pt. Send updated progress note and OT note.
--- NOTE | 2023-02-21 12:19 | NUR ---
report to jose angel galvez, pt in with bipap on and friend at side. pt was able to eat about 20% of puree meal fed by rn with max encouragement and ques.
--- NOTE | 2023-02-21 13:35 | NUR ---
PT RECEIVED FROM CCU TO ROOM 110. PT ON 6L NC, LUNG SOUNDS COARSE WITH RHONCHI THROUGHOUT. PT ALERT ORIENTED TO SELF ONLY. BOWEL TONES ACTIVE. PT WITH TRACE EDEMA IN BLE, PULSES PALPABLE, CMS INTACT. PAULINO CATH PRESENT. IV FLUIDS INFUSING D5LR AT 75ML/HR TO RIGHT WRIST. PF FRIEND WITH PT DURING TRANSFER, ALL BELONGING WITH PT.
--- NOTE | 2023-02-21 14:34 | NUR ---
PT AWAKE ENOUGH TO SEE HER EYES AND PT IS ABLE TO RESPOND. DELAYED, BUT DOES BRIEFLY RESPOND. FRIEND SKYE IN RM. CONCERNED ABOUT PTS' EMOTIONAL AND SPIRITUAL STATE. PRAYED WITH PT, WILL CONTINUE TO FOLLOW
--- NOTE | 2023-02-21 14:54 | NUR ---
PT DESATING, HAD PULLED OFF OXYGEN, OXYGEN REPLACED AND TURNED TO 4L NC, SATS NOW 90%.
--- NOTE | 2023-02-21 14:58 | NUR ---
PT RESTING IN CHAIR, VITAL SIGNS STABLE. IS STILL NOT ORIENTED TO PLACE. FRIEND AT BEDSIDE, CALL LIGHT IN REACH.
--- NOTE | 2023-02-21 15:25 | NUR ---
PT REMOVED THE NC O2, TOOK OFF HER NC SEVERAL TIMES IN A ROW AND DESATED TO THE MID 80'S. PT WAS SWITCHED TO AN OXY MASK AND INCREASED TO 5 L O2. PATIENT IS TOLERATING OXY MASK WELL AND 02 SATS ARE STAYING ABOVE 90. PATIENT DROWSY BUT RESPOUNDS TO VOCAL CUEING. PT REPOSITIONED IN CHAIR, LEANING ON TABLE WITH PILLLOW UNDER ARMS. FRIEND AT BEDSIDE, DENIES OTHER NEEDS.
--- NOTE | 2023-02-21 15:57 | NUR ---
PT PROVIDED WITH A FEW SIPS OF WATER. P.T. AT BEDSIDE TO WORK WITH PT.
--- NOTE | 2023-02-21 16:32 | NUR ---
Physical therapy assisting patient with sit to stands. Patient tolerated activity well, able to ambulate with walker from chair to bed. Patient repositioned in bed, HOB elevated to 30 degrees. reported pain in back, prn tylenol given with apple sauce. Patient takem off of oxy mask and placed on cpap. bed alarm om and call light in reach.
--- NOTE | 2023-02-21 19:20 | NUR ---
REPORT RECEIVED FROM JUAN M OLEARY. JUAN M HOROWITZ AND TOO FUENTES IN ASSISTING PT. PT LAYING IN BED WITH MAGAZINE. PT DENIES ANY NEEDS AT THIS TIME. CALL LIGHT IN REACH. BED ALARM ON.
--- NOTE | 2023-02-21 19:39 | NUR ---
PT REQUESTED TO BE REPOSITIONED. SENIOR TELECOMMUNICATIONS SPECIALIST AND THIS RN REPOSITIONED PT, GAVE DRINK OF WATER. BED ALARM PLACED, WHEN ASKED PT IF SHE WAS COMFORTABLE, SHE SAID IF ITS OK FOR YOU. ENCOURAGED PT TO USE HER CALL LIGHT.
--- NOTE | 2023-02-21 21:16 | NUR ---
Patient's vital were taken and her oxygen was at 80% because of nasal cannual taken off. Nurse was alerted. Repositioned to her right side with nurse assistance. Emptied dorsey and brought fresh ice water.
--- NOTE | 2023-02-21 21:53 | NUR ---
IN TO ROUND ON PT. PT LAYING ON LEFT SIDE. ASSESSMENT COMPLETE. PT DENIES PAIN AT THIS TIME. LUNG SOUNDS COARSE THROUGHOUT AND RHONCHI ON JAZ AND LLL. BOWEL TONES ACTIVE. PT A&O TO SELF, PLACE, TOWN. ASKED PT IF PT KNOWS WHY SHE IS HERE PT STATES "NO." REORIENTED PT. PT STATES "I WAS SO GLAD TO SEE MY SON." PT ON 2L NC WITH O2 SATS AT 92%. PT DENIES ANY OTHER NEEDS AT THIS TIME CALL LIGHT IN REACH. BED ALARM ON.
--- NOTE | 2023-02-21 22:34 | NUR ---
Antolintent moved up in bed and a pillow was placed under patients right side. Patient was given a drink of water and blankets placed over legs. NC was off of patient, OIL TESTER in with nurse to move patient up and OIL TESTER placed oxygen back on her. Patient denies any other needs at this time. Bed alarm on.
--- NOTE | 2023-02-21 22:36 | NUR ---
Patient wanted help rolling onto left side. The nurse assisted me with rolling her and pulling up in bed. Patient had oxygen off again and put it back on for her. Helped with a drink of water and put call light within reach.
--- NOTE | 2023-02-21 23:02 | NUR ---
IN PTs O2 SATS DECREAS TO 84%. PT RESTING IN BED WITH MOUTH OPEN. OXYMASK PLACED AND PT ON 3.5L O2. O2 SATS INCREASE TO 97% AND REMAIN. RT NOTIFIED. PT CONTINUES TO REST IN BED WITH EYES CLOSED. RR EVEN AND UNLABORED. NO OTHER NEEDS IDENTIFIED AT THIS TIME. CALL LIGHT IN REACH. BED ALARM ON.
--- NOTE | 2023-02-21 23:25 | NUR ---
IN PTs O2 SATS DECREASE TO 82%. UPON ENTERING ROOM PT HAS OXYMASK REMOVED. REPLACED OXYMASK ON 3.5L O2 AND PTs O2 SATS INCREASE TO 96% AND REMAIN. JUAN M HOROWITZ IN TO ASSIST WITH BOOSTING PT IN BED. PILLOW PLACED UNDER BLE. PT DENIES OTHER NEEDS AT THIS TIME. CALL LIGHT IN REACH. BED ALARM ON.
--- NOTE | 2023-02-22 00:27 | NUR ---
IN TO ROUND ON PT. PT SITTING UP IN BED AND STATES "I CAN'T SLEEP." OFFERED PRN MELATONIN, PT ACCEPTS. PRN MELATONIN ADMINISTERED, SEE MAR. PO MEDICATION ADMINISTERED WITH APPLE SAUCE WITH NO ISSUES. ATTEMPTED TO ADMINISTER PO MUCINEX WITH APPLE SAUCE, PT SPITS OUT MEDICATION MULTIPLE TIMES. NO MUCINEX ADMINISTERED. PT SITTING UP IN BED PER PT REQUEST. PT DENIES ANY OTHER NEEDS AT THIS TIME. CALL LIGHT IN REACH. BED ALARM ON.
--- NOTE | 2023-02-22 01:59 | NUR ---
IN TO ROUND ON PT. PT MOVING AROUND IN BED REPORTING HEADACHE ASKED PT WHAT PTs PAIN LEVEL IS PT STATES "I DO NOT KNOW." FLACC SCORE OF 4 NOTED. PRN TYLENOL ADMINISTERED CRUSHED AND IN APPLE SAUCE, SEE MAR. PRN ROBITUSSIN ADMINISTERED, SEE MAR. PT TOO FUENTES IN ROOM TO ASSIST WITH BOOSTING PT UP IN BED. ALLEVY NOTED TO PTs LEFT BUTTOCKS C/D/I. PULLOW UNDER PTs LEFT SIDE. ASSESSMENET COMPLETE. LUNG SOUNDS COARS AND RHONCHI THROUGHOUT ALL LOBED. BOWEL TONES ACTIVE. PAULINO EMPTIED. I&Os COMPLETE. PT DENIES ANY OTHER NEEDS AT THIS TIME. CALL LIGHT IN REACH. BED ALARM ON.
--- NOTE | 2023-02-22 03:05 | NUR ---
IN TO ROUND ON PT. PT SITTING UP IN BED REQUESTING TO BE REPOSITIONED. PT LAYS ON LEFT SIDE. HOB POSITION CHANGED. PT REPORTS FEELING COMFORTABLE AT THIS TIME. OXYMASK AT 3.5L IN PLACE WITH O2 SATS AT 95%. PT DENIES ANY OTHER NEEDS AT THIS TIME. CALL LIGHT IN REACH. BED ALARM ON.
--- NOTE | 2023-02-22 04:20 | NUR ---
IN PTs O2 SATS DECREASE TO 86%. UPON ENTERING ROOM PT HAS OXYMASK PULLED UNDER CHIN AND PT MOVING AROUND IN BED. OXYMASK PLACED BACK ON PTs FACE. REPOSITIONED PT. O2 SATS INCREASE TO 92% ON OXYMASK 3.5L. PT DENIES ANY OTHER NEEDS AT THIS TIME. CALL LIGHT IN REACH. BED ALARM ON.
[2023-02-22 05:13] VITALS: BP 155/90
--- NOTE | 2023-02-22 05:19 | NUR ---
IN TO ROUND ON PT. PT SITTING UP IN BED REPORTING PAIN IN BACK AND LEGS. PT REPOSITIONED WITH ASSISTANCE FROM TOO KRISHNAN. PT REPOSITIONED. PAULINO CARE PROVIDED. PT REQUESTING WARM BLANKET, WARM BLANKET PROVIDED. VITALS AND I&Os COMPLETE. PT DENIES ANY OTHER NEEDS AT THIS TIME. CALL LIGHT IN REACH. BED ALARM ON.
--- NOTE | 2023-02-22 06:14 | NUR ---
PT RESTING IN BED. VITALS AND IS AND OS COMPLETE. PT PAULINO CARE AND PAULINO EMPTIED. PT REPOS ON BACK. NO NEEDS. CALL LIGHT WITHIN REACH
--- NOTE | 2023-02-22 07:19 | NUR ---
REPORT RECEIVED FROM JUAN M DEXTER. PT RESTING IN BED, FIGITING WITH ITEMS IN THE BED. PT REPEATDLY STATES "I WANT TO GO HOME." PT DISORINTED TO PLACE, PT REORINTED. WHEN ASKED ABOUT PAIN PT STATES "JUST THE PERMINENT." PT UNABLE TO FURTHER QUALIFY OR QUANTIFY PAIN. FLACC SCORE OF 2 FOR RESTLESSNESS. NO ADDITIONAL NEEDS AT THIS TIME. CALL LIGHT WITHIN REACH. BED ALARM ON. BED RAILS UP.
--- NOTE | 2023-02-22 08:20 | NUR ---
MORNING ASSESSMENT AND MEDICATION DUE. PT REPORTS SHE WOULD LIKE TO GET UP TO THE CHAIR. PT UP TO CHAIR WITH ONE PERSON ASSIST AND FWW. PT IMPULSIVE BUT FOLLOWS DIRECTIONS. PT OREITNED TO SELF AND PLACE AT THIS TIME. PT REMAINS DISOREINTED TO DATE AND EVENTS. PT DENIES PAIN AND NAUSES, STATEMENTS NOT ALWAYS CLEAR, WHEN PT ASKED IF ANYTHING HURTS PT STATES "NO, MY BLOOD HURTS." FLACC SCORE OF 0/10. NO IV PRESENT IN RIGHT ANKLE. IV TO RIGHT FORARM LEAKING, DC'D PER PROTOCOL, GAUZE AND COBAN APPLIED. NEW IV STARTED TO UPPER RIGHT FORARM PER PROTOCOL, PT TOELRATED WELL. BRISK BLOOD RETURN NOTED. IV ABX STARTED (SEE MAR). DELAYED SWALLOW REFLEX, THICKENED LIQUIDS PROVIDED. COURSE LUNG SOUNDS HEARD ON RIGHT SIDE. PT FREQEUENTLY TAKES OF OXGYEN, EDUCATION DONE. CPOX MONITOR IN PLACE. OXYGEN SATUARTION OF 90-92% ON 3L O2 BY NC. NORMAL WORK OF BREATHING SEEN. SINUS RYTHEM NOTED ON MONITOR, WITH RATE IN ZITA 70'S. PAULINO CATHETER REMAINS WNL, CLEAR YELLOW URINE SEEN. ALLEVYN, REMAINS C/D/I TO COCCYX, REMAINS IN PLACE. NO ADDITIONAL NEEDS AT THIS TIME. CLINICAL RECRUITER AT BEDSIDE ASSISTING PT WITH BREAKFAST. CALL LIGHT WITHIN REACH. CHARIA ALARM ON.
[2023-02-22 09:34] VITALS: BP 124/67
--- NOTE | 2023-02-22 10:01 | NUR ---
HOURLY ROUNDING: PT REMAINS UP TO CHAIR. PT RESTLESS AND WANTING TO "GET UP AND GO OUT." PT UPDATED ON PLAN OF CARE. IV PUMP ALARMING, ABX COMPLETE. IV FLUSHED AND IV FLUIDS RESTARTED (SEE MAR). PT DENIES PAIN AND NASUEA. NO ADDITIONAL REQUESTS OR COMPLAINTS. CALL LIGHT WITHIN REACH. CHAIR ALARM ON.
--- NOTE | 2023-02-22 11:10 | NUR ---
HOURLY ROUNDING: PT REMAINS UP TO CHAIR, PT VISITING WITH HER DAUGHTER IN LAW. PHYSICAL THERAPY TO BEDSIDE TO WORK WITH PT. PT DENIES PAIN AND NAUSEA. OXYGEN SATURATION OF 91% ON 3L O2 BY NC. NO ADDITIONAL REQUESTS OR COMPLAINTS. CALL LIGHT WITHIN REACH.
--- NOTE | 2023-02-22 12:17 | NUR ---
HOURLY ROUNDING: LUNCH DELIVERED TO PT. PT DECLINES FOOD. TOWN MARSHAL ENCOURAGES PT TO ORDER DIFFERENT FOOD, PT DECLIENS STATING "I'M JUST NOT HUNGRY." PT STATES SHE WANTS TO "GO, GET OUT OF HERE AND HAVE A CIGARETTE." ALEX STEVENS ORDERED FOR PT, SEE MAR FOR MEDICATION GIVEN. PT UPDATED ON PLAN OF CARE AND OREINTED TO SITUATION. PT DENIES ADDITIONAL REQUESTS OR COMPLAINTS. PT REMAINS UP TO CHAIR. CALL LIGHT WITHIN REACH. CHAIR ALARM ON.
--- NOTE | 2023-02-22 13:03 | NUR ---
THIS RN TO ROOM TO CHECK ON PT. PT REMAINS UP TO CHAIR. CONTINUES TO BE AGITATED STATING SHE WANTS TO GO OUTSIDE TO SMOKE. PT CALMS WITH THERAPUTIC COMMUNICATION. PT ASKS TO "REST IN THE CHAIR." PT ASSITED WITH REPOSITINING. PT DENIES PAIN AND NAUSEA. NO ADDITIONAL REQUESTS OR COMPLAINTS. CALL LIGHT WITHIN REACH. CHAIR ALARM ON.
[2023-02-22 14:08] VITALS: BP 160/87
--- NOTE | 2023-02-22 15:05 | NUR ---
Updated notes on PT sent to [facility] for 02/22/2023
--- NOTE | 2023-02-22 15:13 | NUR ---
PT SITTING IN CHAIR, NAPPING. AWOKE TO MY VOICE, INVITED ME OVER. HAD GOOD VISIT, PT WANTS TO GO HOME. DISCUSSED IF SHE FELT SAFE GOING HOME. PT DID NOT RESPOND. SAID SHE HAD A G.DAUGHTER VISIT-SEEMED TO BRIGHTEN HER SPIRITS. PT SEEMED UNCOMFORTABLE IN CHAIR, NOTICED L ELBOW VERY RED. INFORMED TOO SHANNON, SHE WILL CHECK PT AND MOVE TO BED. PT MENTIONED SHE BELIEVES THER IS LIFE AFTER THIS ONE AND SHE IS SECURE WHERE SHE WILL BE. HAD PRAYER, CONFUSION WOULD SET IN OCCASIONALLY.
--- NOTE | 2023-02-22 15:24 | NUR ---
AFTERNOON ASSESSMENT DUE. PT REMAINS UP TO CHAIR. FAMILY AT BEDSIDE. PT RESTING WITH EYES CLOSED. BUT AWAKENS TO VOICE AND MOVEMENT IN THE ROOM. PT REMAINS ALERT AND OREINTED TO SELF AND PLACE. CONTINUES TO BE CONFUSED ABOUT EVENTS AND DATE. PT FOLLOWS DIRECTIONS AND IS COOPERATIVE WITH CARES. PT DENIES PAIN. FLACC SCORE OF 0/10. LUNG SOUNDS CLEAR IN UPPER LOBES, CORSE IN LOWER LOBES. NORMAL WORK OF BREATHING NOTED. PT TOELARTING 3L O2 BY NC WITH OXGYEN SATUARTION 95-98%. PT WEANED TO 2L O2 BY NC AND CONTINUES TO TOLEATE WITH OXGYEN SATURATIONS ABOVE 92%. SINUS RYTHEM NOTED ON TELEMETRY MONITORING WITH HEART RATE IN THE 70'S. ABDOMEN SOFT AND NON TENDEDER. ALELVYN CHANGED TO COCCYX DURING BED BATH (BATH BY SHANNON GAGE). PT TOELRATED WELL. PHOTOGRAPHS TAKEN (SEE PAPER CHART). PAULINO CATHETER CARE DONE, CLEAR YELLOW URINE IN LAREGE AMOUNTS SEEN IN CATHETER BAG. NO ADDITIONAL NEEDS AT THIS TIME. PT REMAINS UP TO CHAIR. CHAIR ALARM ON. CALL LIGHT MEGAHTIN REACH.
--- NOTE | 2023-02-22 16:08 | NUR ---
PT HAS HAD TWO ADDITIONAL ELEVATIONS OF HEART RATE TO THE 160'S WHILE RESTING IN THE CHAIR. HEART RATE RECOVERS TO 100-120'S. PT DENIES CHEST PAIN. RYTHEM NOW NOTED TO BE AFLUTTER. DR RUIZ UPDATED. AWAITING NEW ORDERS. PT RESTING IN CHAIR. OXGYEN SATURATION 91-95% ON 2L O2 BY NC. PT ALETER AND OREITNED PER BASELINE. COUNCILOR AT BEDSIDE.
--- NOTE | 2023-02-22 16:53 | NUR ---
NOTIFIED BY RT THAT PT APPEARS TO BE DISORIENTED, IN TO ASSESS PT. PT ALERT TO FIRST NAME ONLY, DISORIENTED TO LAST NAME, DATE, PLACE AND TIME. PUPILS EQUAL ROUND AND REACTIVE, EQUAL MANAGER MEDICAL WRITING STRENGTH BILATERALLY. NO FACIAL DROOP NOTED. DR RUIZ NOTIFIED OF MENTAL STATUS. AWAITING LAB RESULTS, NO NEW ORDERS AT THIS TIME. PT TRANSFERED TO BED WITH CELILING LIFT, DUE TO INCREASED HEART RATE AND DECREASED ABILITY TO FOLLOW DIRECTION. RT IN ROOM TO PUT PT ON BIPAP, PT NOT TOLERATING WELL. PRIMARY RN, APRIL IN ROOM, UPDATED.
[2023-02-22 16:57] VITALS: BP 122/90
--- NOTE | 2023-02-22 17:00 | NUR ---
PTS HEART RATE CONTINUES TO BE IN THE 160-170'S. PT DISOREINTED TO ALL BUT HER OWN FIRST NAME. PT REPORTS SHORTNESS OF BREATH STATING, "NOW I DONT' HAVE AIR." PT OREINTED ONLY TO HER OWN FIRST NAME, PT DOES FOLLOW DIRECTIONS. DR RUIZ UPDATED. ADDITIONAL NEW ORDERS PLACED. METOPROLOL AND MAGNESIUM GIVEN. HEART RATE SLOWS TO 90 TO 100 WITH AFIB RYTHEM. PT REPORTS SHE IS FEELING BETTER. PT IN BED IN CHAIR POSITION TO AID WITH BREATHING. PT REMAINS ON 1L O2 BY [place] WITH OXGYEN SATURATIONS OF 89-90%. O2 INCREASED TO 2L AND SATURATIONS CLIMB TO 91-93%. PT CONTINUES TO BE DISOREINTED. DR. RUIZ UPDATED. NO ADDITIONAL NEW ORDERS. BED RAILS UP. CALL LIGHT WITHIN REACH. BED ALARM ON.
--- NOTE | 2023-02-22 17:08 | NUR ---
TRIED PT ON BIPAP DUE TO CONFUSION AND LETHARGY. PT'S CO2 WAS GOOD BUT HR CONTINUES TO BE HIGH. PT DID NOT TOLEATE BIPAP AND MASK WAS REMOVED AND PT PLACED ON 1L/MIN NC. PT ON 2L/MIN ND HAD SATS OF 95%
--- NOTE | 2023-02-22 17:39 | NUR ---
PT CONTINUES TO REMOVE OXYGEN TUBING. CONSUTLED AND STATES TO LEAVE PT ON 1L O2 BY NC TO MAINTAIN OXGYEN SATUARTIONS 89-92%. 1L O2 BY NC REMAPINS IN PLACE.
[2023-02-22 18:26] VITALS: BP 151/84
--- NOTE | 2023-02-22 18:28 | NUR ---
THIS RN TO ROOM TO CHECK ON PT. PT SITTING IN BED, ASKING FOR WATER, WATER PROVIDED. PTS ALEX SAINI FOUND IN HER LAP, PT STATES "OH I DROPPED THAT." PT OTHERWISE NOT MAKING SINCE WITH HER WORDS, STATES "I NEED [facility]." AND OTHER PHRASES THAT DO NOT MAKE SENSE. PT IS ABLE TO ANSWER YES AND NO QUESTIONS. MUSIC PLACED ON TV FOR PT. PT STATES "OH, THAT'S NICE." HEART RATE IN THE 80'S WITH SINUS RYTHEM NOW NOTED ON DIRECTOR CUSTOMER. 90% OXYGEN SATURATION ON 1L O2 BY NC. NO ADDITIONAL NEEDS AT THIS TIME. CALL LIGHT WITHIN REACH. BED RAILS UP. BED ALARM ON.
--- NOTE | 2023-02-22 18:50 | NUR ---
PT HERE FOR AFIB RVR, HYPOXIC RESPIRTORY FAILURE, PENUMONIA AND UTI. PT UP TO CHAIR AND TO BED WITH 1-2 PERSON ASSIST AND FWW. PT TOLERING PUREED DIET WITH MINIMAL APPITITE AND MINMAL PO INTAKE. PT AGITATED AND WANTING TO GO OUT SIDE TO SMOKE THIS SHIFT, ALEX STEVENS ORDERED AND GIVEN. TELEMETRY MONITORING THIS SHIFT IN SINUS RYTHEM THIS MORNING AND BACK TO AFLUTTER/AFIB THIS AFTERNOON WITH HEART RATE IN THE 160'S. METOPROLOL GIVEN WITH GOOD RESULTS. CONVERTED BACK TO SINUS RYTHEM THIS EVENING. PT WEANED TO 1L 2O BY NC TO MAINTAIN OXGYEN SATURATION 89-91%, VBG COMPLETED. PT OREINTED INTERMITTANTLY THIS SHIFT, AWARE. ALLEVYNS TO COCCYX AND RIGHT UPPER LEG CHANGED. BED BATH PERFORMED. PAULINO CATHEER REMAINS IN PLACE, LARGE QUANTITIES. PT DOES NOT USE CALL LIGHT, BED/CHAIR ALARM FOR SAFETY.
--- NOTE | 2023-02-22 19:20 | NUR ---
REPORT RECEIVED FROM JUAN M CHEN. PT SITTING UP IN BED AND RESPONDS WHEN ADDRESSED. PT DENIES ANY NEEDS AT THIS TIME. CALL LIGHT IN REACH. PT IN VIEW OF NURSES STATION.
--- NOTE | 2023-02-22 19:56 | NUR ---
Readusted pt as needed. Left call light in reach. No other needs expressed by Pt.
[2023-02-22 21:35] VITALS: BP 118/68
--- NOTE | 2023-02-22 21:36 | EKG ---
[facility] [address] [place] [address] Signed Atrial fibrillation with rapid ventricular response Left posterior fascicular block Possible Anterior infarct (cited on or before 17-FEB-2023) ST \T\ T wave abnormality, consider lateral ischemia Abnormal ECG When compared with ECG of 17-FEB-2023 14:00, Atrial fibrillation has replaced Atrial flutter Serial changes of evolving Anterior infarct present Confirmed by LYNDSAY RUIZ MD ([id number]) on 02/22/2023 9:36:07 PM Electronically Signed By: LYNDSAY URIZ MD 02/22/236 PATIENT NAME: ERICA HAMMER Electrocardiogram DATE OF : 39 PHYSICIAN: LYNDSAY RUIZ MD REPORT #: [id number] REPORT IS CONFIDENTIAL AND NOT TO BE RELEASED WITHOUT AUTHORIZATION
--- NOTE | 2023-02-22 21:45 | NUR ---
IN TO ROUND ON PT. PT SITTING UP IN BED. PT REPORTS PAIN, PT UNABLED TO VERBALIZE PAIN SCALE NUMBER. FLACC SCORE OF 4 NOTED. PRN TYLENOL ADMINISTRED CRUSHED AND IN APPLE SAUCE. PT TAKES PO MEDICATION WITH NO ISSUES. PRN MELATONIN ADMINISTERED, SEE DEC. VITALS AND I&Os COMPLETE. ASSESSMENT COMPLETE. LUNG SOUNDS DIMINISHED THROUGHOUT ALL LOBED. WHEEZE IN RLL. BOWEL TONES ACTIVE. PT A&O TO SELF. ASKED PT WHERE PT IS AND PT STATES "[facility]." ASKED PT WHAT [place]OWN PT IS IN PT STATES [place] ASKED PT WHAT THE DATE IS PT STATES "NOW THAT I AM HAVING A HARD TIME." INFROMED PT IT IS February. ASKED PT WHAT THE YEAR IS PT STATES "23." RT TO ROOM TO ADMINISTER NEB TX. NO OTHER NEEDS FROM THIS RN AT THIS TIME. CALL LIGHT IN REACH. BED ALARM ON.
--- NOTE | 2023-02-22 22:33 | NUR ---
IN PTs O2 SATS DECREASE TO 87% ON 1L NC. PT RESTING IN BED WITH EYES CLOSED. MOUTH OPEN. RR EVEN AND UNLABORED. 1L O2 OXYMASK PLACED ON PT AND O2 SATS INCREASE TO 89-90%. PT COVERED WITH BLANKETS. NO OTHER NEEDS IDENTIFIED AT THIS TIME. CALL LIGHT IN REACH. BED ALARM ON.
--- NOTE | 2023-02-22 23:00 | NUR ---
IN PT HAS REMOVED OXYMASK. PLACED PT BACK ON 1L NC O2 SAS AT 91%. PT RESTING IN BED WITH EYES CLOSED. RR EVEN AND UNLABORED. NO OTHER NEEDS IDENTIFIED AT THIS TIME. CALL LIGHT IN REACH. BED ALARM ON.
--- NOTE | 2023-02-23 | NUR ---
IN PT MOVING AROUND IN BED. PT STATES "I WANT TO GET UP" PT MOVES LEGS TOWARDS EDGE OF BED. MEGHANN RN IN TO ASSIST WITH BOOSTING PT UP IN BED. PT BOOSTED IN BED AND PT REPOSITIONS SELF. THIS RN SITS WITH PT UNTIL PT CLOSES EYES AND RESTS IN BED WITH RR EVEN AND UNLABORED. CALL LIGHT IN REACH. PT IN VIEW OF NURSES STATION.
--- NOTE | 2023-02-23 01:53 | NUR ---
IN PTs O2 SATS DECREASE TO 86%. PT NC OFF OF FACE WHEN ENTERING ROOM. PLACED NC BACK ON PT AND SET TO 2L O2. O2 SATS INCREASE TO 90%. PT GOES BACK TO RESTING IN BED WITH EYES CLOSED. RR EVEN AND UNLABORED. NO OTHER NEEDS IDENTIFIED AT THIS TIME. CALL LIGHT IN REACH. BED ALARM ON.
--- NOTE | 2023-02-23 03:45 | NUR ---
Patient wanted moved over in bed. Nasal Cannula was put back in place. Patient wanted a snack, fed her an applesauce. Was content afterward and was covered up and call light within reach.
--- NOTE | 2023-02-23 03:48 | NUR ---
IN PTs O2 SATS DECREASE TO 86%. UPON ENTERING ROOM PTs NC IS NOTED TO BE OFF PTs FACE. REPLACED NC AND O2 SATS INCREASE TO 91% ON 2L NC. ASSESSMENT COMPLETE. LUNG SOUNDS CLEAR IN RUL AND JAZ. DIMINISHED IN RLL AND LLL. COARSE IN LLL. BOWEL TONES ACTIVE. PT DOES NOT REPORT PAIN AT THIS TIME. PT A&O TO SELF, AND TOWN. ASKED PT WHERE PT IS AND PT STATES "[facility]." ASKED PT WHAT [place]OWN PT IS IN AND PT STATES "[place] ASKED PT WHAT THE DATE IS AND PT STATES "IS IT THE ?" INFORMED PT IT IS THE . ASKED PT WHAT MONTH IT IS AND PT STATES "I DON'T KNOW." INFORMED PT IT IS FEBRUARY. ASKED PT WHAT THE YEAR IS AND PT STATES "2022." PT DENIES ANY NEEDS AT THIS TIME. CALL LIGHT IN REACH. BED ALARM ON.
[2023-02-23 05:35] VITALS: BP 142/69
--- NOTE | 2023-02-23 05:38 | NUR ---
IN TO ROUND ON PT. TOO KRISHNAN IN ROOM OBTAINING VITALS AND I&Os. NEW TELE BATTERY PLACED. PT DENIES ANY OTHER NEEDS AT THIS TIME. CALL LIGHT IN REACH. BED ALARM ON.
--- NOTE | 2023-02-23 07:12 | NUR ---
REPORT RECEIVED FROM JUAN M MURO. PT RESTING WITH EYES CLOSED, RESPIRATIONS EVEN AND UNLABORED. HEART RATE IN SINUS BRADYCARDIA IN THE 50'S AT THIS TIME. OXYGEN SATURATION 96% ON 2L O2 BY NC, PT WEANED TO 1L O2 BY NC WITH OXGYEN SATURATIONS 90-94%. PT ALLOWED TO REST. SAMI LIGHT WITHIN REACH. BED RAILS UP. BED ALARM ON.
--- NOTE | 2023-02-23 08:14 | NUR ---
PTS OXGYEN SATURATION NOW NOTED TO BE 86-87% ON TELEMETRY MONITORING WITH QUALITIY WAVE FORM. PT CONTINUES RESTING WITH EYES CLOSED. OXGYEN INCREASED BACK TO 2L O2 BY NC. BED RAILS UP. CALL LIGHT WITHIN REACH. PT ALLOWED TO REST UNDESTURBED.
--- NOTE | 2023-02-23 08:33 | NUR ---
NOtified by EVITA at [facility], they will accept this pt today. I will update Dr. Ferguson.
--- NOTE | 2023-02-23 08:40 | NUR ---
Dr Ferguson updated and she will complete orders. Called and attempted to schedule the WC van for 1 pm. He states they have had a cancellation for 10:15 and this is their only opening today. Notified EVITA, Dr. Ferguson, and charge loader.
[2023-02-23] MEDS ORDERED: ANASTROZOLE1 MG PO (09:01)
[2023-02-23] MEDS ORDERED: VENTOLIN HFA18 GM INH (09:02)
[2023-02-23] MEDS ORDERED: NICOTINE1 EAC2 TD (09:02)
[2023-02-23] MEDS ORDERED: ARIPIPRAZOLE10 MG PO (09:03)
[2023-02-23] MEDS ORDERED: ACETAMINOPHEN500 MG PO (09:03)
[2023-02-23] MEDS ORDERED: BREO ELLIPTA I1 EACH INH (09:03)
[2023-02-23] MEDS ORDERED: MAGNESIUM OXID400 M1 PO (09:04)
[2023-02-23 09:12] VITALS: BP 105/59
--- NOTE | 2023-02-23 09:14 | NUR ---
MORNING ASSESSMENT AND MEDICATION DUE. PT RESTING IN BED, FEEDING SELF BREAKFAST WITH OBSERVATION FOR SWALLOW PRECAUTIONS BY DIVE SUPERVISOR. PT ORIENTED TO ALL THIS MORNING INCLUDING MONTH AND YEAR AND SITUATION. PT AGREES THAT SHE IS READY TO LEAVE FOR [place] TODAY. DR. RUIZ TO BEDSIDE FOR ROUNDS AND DISCHARGE ORDERS PLACED. PT DENEIS PAIN AND NAUSEA. 1 PERSON ASSIST WITH FWW UP TO CHAIR. PT REPORTS FEELING DIZZY AND UNSTEAEDY ON FEET. MD AWARE. GENERALIZED WEAKNESS CONTINUES. LUNG SOUNDS CLEAR IN UPPER LOBES, CORSE IN BASES WITH MINOR CRACKELS NOTED. WORK OF BREATHIGN WNL. PT CONTINUES TOLERATE 2L O2 BY NC WITH OXGYEN SATUARTIONS ABOVE 89%. HEART RATE IN THE 70'S ON MONITOR WITH NORMAL SINUS RYTHEM NOTED AT THIS TIME. PTS APPITITE IMPROVED. PT REQUESTS ADDITONAL FOOD. ATE ~25% OF BREAKFAST. PT DRINKING THICKENED WATER ON HER OWN, NO SWALLOWING ISSUES OR THROAT CLEARING NOTED WITH THICKENED LIQUIDS. PAULINO CATHETER DC'D PER MD VERBAL ORDER. PO FLUIDS ENCORUAGED. DRY DEPENDS IN PLACE. PREVENTITIVE ALLEVYNS TO GLUTEAL AREA AND UPPPER RIGHT LEG C/D/I. PT DENIES ADDITIONAL REQUESTS OR COMPLAINTS. CALL LIGHT WITHIN REACH. CHAIR ALARM ON.
--- NOTE | 2023-02-23 09:30 | NUR ---
Pt discussed in meeting. Catheter was dcd and they are waiting to see if pt is able to void. If not able to do so, will replace catheter. Reminded, van will be here at 1015. Called and updated Marisela Prabhakar, pt will go to SNF today. She will deliver pts clothing and personal supplies.
--- NOTE | 2023-02-23 09:48 | NUR ---
PUMP ALARMING, INFUSION AND FLUSH COMPLETE. IV FLUSHED AND IV FLUIDS RESUMED. PT DENIES PAIN AND NAUSEA. PT DENIES NEED TO USE THE RESTROOM. ADDITIONAL PO FLUIDS ENCORAUGED. NO ADDITIONAL REQUESTS OR COMPLAINTS. CALL LIGHT WITHIN REACH. CHAIR ALARM ON.
--- NOTE | 2023-02-23 09:50 | NUR ---
Orders and PASRR faxed. Updated, I will fax the dc summary when completed. [place] is letting us borrow an 02 tank for transport and will picking machine operator later. Notified by staff the wc for transport was not returned by the WC van. Called and spoke with Kleber and asked him to have the haul driver go to the SNF first and picking machine operator our wc to transport this pt.
--- NOTE | 2023-02-23 10:00 | NUR ---
PT SITTING IN CHAIR-ALERT AND SEEMS TO BE ENJOYING A BEVERAGE. PT USING O2 NC, SAID SHE IS GOING HOME TODAY. POC IS DC TO [facility]-PT IS OFTEN CONFUSED BUT VERY PLEASANT. HAD PRAYER, GAVE BLESSING. WILL FOLLOW
--- NOTE | 2023-02-23 10:20 | NUR ---
WHEELCHAIR VAN ARRIVED TO ASSEMBLER SEAT PT FOR TRANSFER. PT HAS YET TO VOID AFTER CATHETER WAS DC'D. PT UP TO BEDSIDE COMODE AND VOIDS 50ML DARK YELLOW URINE. DR RUIZ UPDATED AND STATES TO REPLACE PAULINO CATHETER AND VOIDING TRIAL WILL BE PERFORMED AT FACILITY. 2 PERSON ASSIST BACK TO BED. PAULINO CATHETER PLACED PER PROTOCOL. 20ML CLOUDY YELLOW URINE SAMPLE COLLECTED. NO ORDERS GIVEN FROM MD FOR UA PT IS ALREAY ON ABX. GOWN CHANGED. PT TRANFERED TO WHEELCHAIR WITH 2 PERSON ASSIST. OXGYEN TAKEN SENT WITH PT SET TO 2L O2 BY NC. DISCHRAGE PACKET GIVE TO WHEELCHAIR PERSONELL. PT VERBALIZES UNDERSTANDING OF PLAN FOR DISCHRAGE. ALL BELONGINGS SENT WITH PT.
--- NOTE | 2023-02-23 10:38 | NUR ---
Dc summary completed and faxed to [facility].
--- NOTE | 2023-02-23 10:38 | NUR ---
REPORT CALLED TO EMMANUEL AT [facility]. QUESTIONS ASKED AND ANSWERED.
== END 2023-02-23 10:25 | DRG 871 ==
LOC: ED 12:41 → CCU 16:07 → MS 16:07
PROVIDERS: ADMIT Family Medicine; ATTEND Internal Medicine
PROC: 3E03329 Introduction of Other Anti-infective into Peripheral Vein, Percutaneous Approach (ICD-10-PCS; principal; 2023-02-17)
PROC: 4A033R1 Measurement of Arterial Saturation, Peripheral, Percutaneous Approach (ICD-10-PCS; 2023-02-17)
PROC: 5A09557 Assistance with Respiratory Ventilation, Greater than 96 Consecutive Hours, Continuous Positive Airway Pressure (ICD-10-PCS; 2023-02-17)
PROC: 3E033XZ Introduction of Vasopressor into Peripheral Vein, Percutaneous Approach (ICD-10-PCS; 2023-02-17)
DX: A40.3 Sepsis due to Streptococcus pneumoniae (principal); J13 Pneumonia due to Streptococcus pneumoniae; J96.01 Acute respiratory failure with hypoxia; N39.0 Urinary tract infection, site not specified; T17.990A Other foreign object in respiratory tract, part unspecified in causing asphyxiation, initial encounter; Z20.822 Contact with and (suspected) exposure to COVID-19; Z66 Do not resuscitate; I10 Essential (primary) hypertension; F17.210 Nicotine dependence, cigarettes, uncomplicated; I48.91 Unspecified atrial fibrillation; J43.9 Emphysema, unspecified; N28.89 Other specified disorders of kidney and ureter; Z88.8 Allergy status to other drugs, medicaments and biological substances; Z90.710 Acquired absence of both cervix and uterus; Z98.890 Other specified postprocedural states; Z79.899 Other long term (current) drug therapy
CPT/HCPCS: 36415; 36600; 51702; 70450; 71045; 71260; 80048; 80053; 81001; 82803; 83605; 83735; 83880; 84100; 84484; 85025; 85379; 85610; 85730; 87040; 87449; 87502; 87899; 92526; 92610; 93005; 93010; 93306; 94640; 94660; 94667; 94668; 94760; 94762; 97110; 97116; 97163; 97167; 97530; 99285-25; A9270; J0456; J0696; J1650; J2060; J2930; J3475; J3490; J7030; J7060; J7121; Q9967; U0003